=== PATIENT | female | born 1965 | race African-American/Black ===

== ENCOUNTER 2024-06-06 16:07 | Outpatient (AMB) | payer OTHER, SELFPAY ==
--- NOTE | 2024-06-06 16:11 | A.OFFPC_ITS ---
Vital Signs 06/06/24 16:18 Height 5 ft 2.5 in Weight 215 lb 4 oz BMI 38.7 BP 128/80 Blood Pressure Location Lt brachial Position Sitting Pulse 68 Pulse Source Pulse Oximeter Pulse Oximetry (%) 98 Oxygen Delivery Method Room Air Intake Visit Reasons: establish care Intake Note: Patient is requesting refills on all medications. Manager Fine Dining Required: No Accompanied by: Self / Same As Patient Allergies oxycodone Allergy (Severe, Verified 06/06/24 16:52) itchy Medication List - Last Reconciled 06/06/24 by Hood Sutton MD amlodipine 5 mg PO DAILY hydrochlorothiazide 25 mg PO DAILY metformin ER 500 mg PO BID Tobacco use date assessed: 06/06/24 Dental Screening Dental Screen Date: 06/06/24 Did you have a dental visit in the last 12 months?: Yes Did you have a dental problem in the last 6 months where you did not have access to dental care?: No Was dental information given to patient?: Patient has dentist HPI establish care HPI Details Patient comes in today to establish care - is a new patient to the practice States that she moved here from [place] back in November 2023 and that her previous PCP was practicing out of [facility] Patient states that she has a few medical conditions and has not had her Rx for about 2 weeks now and needs to have her medications refilled States that she has been a diabetic for about 3 years now and that her diabetes has been under good control on her current Rx She denies any headaches or dizziness Denies any chest pains, no SOB No nausea/vomiting, no abdominal pain No change in bowel habits noted She denies any acute urinary symptoms Patient adds that she has had low back pain for years and used to get something for her back pain while she was in [place] and would like to get a prescription again for some Tramadol She does not recall any recent imaging studies done to look into her chronic low back pain States that she had her annual mammogram done at [facility] in [place] about 3 months ago and was advised that her mammogram came back normal Patient states that she has never had a screening colonoscopy done and it has been a few years now since she last had her yearly gynecology exam and Pap smear She is not due for osteoporosis screening yet as she just developed menopause about 2 years ago FOR[facility]LY [facility], [facility] Medical History (Updated 06/08/24 @ 11:21 by Hood Sutton MD) Obesity (BMI 30-39.9) Low back pain Essential hypertension Diabetes mellitus History of root canal treatment Surgical History (Updated 06/06/24 @ 17:03 by Hood Sutton MD) History of ankle surgery Family History (Updated 06/06/24 @ 16:22 by JOE Garay) Other Diabetes Prostate cancer Social History Housing: House Patient Tobacco Use Status: Never used Tobacco e-Cigarette/Vaping Use: Never Used Second Hand Smoke Exposure: No service: No Current occupational status: employed Current occupational exposures/hazards: No Cognitive needs: No Hearing needs: No Vision needs: Yes Questionnaire PHQ-9 Over the last 2 weeks, how often have you been bothered by any of the following problems? 1. Little interest or pleasure in doing things: not at all 2. Feeling down, depressed, or hopeless: not at all 3. Trouble falling or staying asleep, or sleeping too much: not at all 4. Feeling tired or having little energy: not at all 5. Poor appetite or overeating: not at all 6. Feeling bad about yourself - or that you are a failure or have let yourself or your family down: not at all 7. Trouble concentrating on things, such as reading the newspaper or watching television: not at all 8. Moving or speaking so slowly that other people could have noticed. Or the opposite - being so fidgety or restless that you have been moving around a lot more than usual: not at all 9. Thoughts that you would be better off or of hurting yourself in some way: not at all Total score: 0 Depression Screening Interpretation: Negative Depression Screening Done: Yes 30651 - PHQ-9 Billing: Yes Source: Developed by Drs. Sarkis Phelps, Olivia Ramírez, Elbert Wright and colleagues, with an educational jose enrique from [employer]. Thrive Questionnaire Date Thrive assessed: 06/05/24 I am a: Patient What is your living situation today?: I have a steady place to live Within the past 12 months, did the food you bought not last and you didn't have the money to get more?: Never true Within the past 12 months, did you worry whether your food would run out before you got money to buy more?: Sometimes True Do you have trouble paying for medicines?: No Do you have trouble getting transportation to medical appointments?: No Do you have trouble paying your heating and electricity bill?: Yes Do you have trouble taking care of your child, family member or friend?: No Do you have trouble with day-to-day activities such as bathing, preparing meals, shopping, managing finances, etc.?: No Are you currently unemployed and looking for a job?: No Are you interested in more education?: Yes Please select the resources that you would like help with: Utilities Currently or been in a relationship where the following occur: No concerns re ported THRIVE Score: 2 AUDIT C Alcohol Use Questionnaire (AUDIT-C) 1. How often do you have a drink containing alcohol?: Never 2. How many drinks containing alcohol do you have on a typical day when you are drinking?: 1 or 2 3. How often do you have six or more drinks on one occasion?: Less than monthly Total Score: 1 Score Reviewed/Action Taken: Yes MAYE-7 AMB Questionnaire MAYE-7 Date MAYE - 7 assessed: 06/06/24 Feeling nervous, anxious, or on edge: 0 = Not at all Not being able to stop or control worryin = Not at all Worrying too much about different things: 0 = Not at all Trouble relaxin = Not at all Being so restless that it is hard to sit still: 0 = Not at all Feeling afraid as if something awful might happen: 0 = Not at all Source: Developed by Drs. Sarkis Phelps, Olivia Ramírez, Elbert Wright and colleagues, with an educational jose nerique from [employer]. Review of Systems Const Denies chills, Denies fatigue, Denies fever(s), Denies headache(s) and Denies malaise Eyes Denies blurry vision, Denies change in vision, Denies irritation and Denies itchy eyes ENT Denies dysphagia, Denies dizziness, Denies otalgia, Denies headache(s), Denies nasal congestion, Denies neck pain, Denies odynophagia, Denies sinus pain and Denies sore throat Card Denies chest pain, Denies rapid heart rate, Denies irregular heart rhythm, Denies palpitations and Denies dyspnea Resp Denies chest congestion, Denies cough, Denies dyspnea and Denies wheezing GI Denies abdominal pain, Denies bloating, Denies constipation, Denies dysphagia, Denies heartburn, Denies diarrhea, Denies nausea, Denies odynophagia and Denies vomiting Denies hematuria, Denies urinary frequency, Denies dysuria, Denies urinary incontinence and Denies urinary urgency Musc Reports back pain (over her lower back - chronic), Denies arthralgias, Denies joint swelling, Denies muscle weakness and Denies neck pain Skin/Breast Denies breast pain, Denies breast mass, Denies change in pigmentation, Denies lesions, Denies rash and Denies unusual bruising Neuro Denies dizziness, Denies headache(s) and Denies paresthesias Psych Denies anxiety and Denies depression Endo Denies fatigue and Denies palpitations Nuno/Lymph Denies easy bruising Aller/Immun Denies itchy eyes and Denies wheezing Physical exam (Primary Care) Vital Signs: Last Vital Signs Pulse 68 06/06/24 16:18 BP 128/80 06/06/24 16:18 Pulse Ox 98 06/06/24 16:18 Oxygen Delivery Method Room Air 06/06/24 16:18 BMI result Body Mass Index 38.7 Tobacco/Smoking Status: Tobacco use Status Tobacco use date assessed 06/06/24 06/06/24 16:14 Patient Tobacco Use Status Never used Tobacco 06/06/24 16:26 e-Cigarette/Vaping Use Never Used 06/06/24 16:14 PHQ-9: PHQ-9 Score PHQ-9: Total score 0 06/07/24 06:59 Depression Screening Interpretation: Negative Thrive Assessment: Date of Thrive Assessment Date Thrive assessed 06/05/24 06/06/24 16:14 Currently or been in a relationship where the following occur: No concerns reported Const General: no acute distress, alert and awake Orientation/consciousness: patient oriented x3 HENMT Head: Yes normocephalic and Yes atraumatic Ears: external ears normal, TM's normal bilaterally and EAC's normal General nose exam: No nasal discharge present Face and sinus: Yes normal facial exam and Yes sinuses nontender Teeth and gingiva: dentition normal Throat: Yes posterior oropharynx normal and Yes tonsils normal (no TP conge stion) Eyes Eyelids: Yes eyelids normal Conjunctivae: conjunctivae normal Pupils: Equal, round and reactive pupils present EOM: EOMs intact bilaterally Neck Neck: Yes no lymphadenopathy and Yes supple Thyroid: Thyroid normal Resp Auscultation: clear to auscultation bilaterally, no rales and no wheezes Cardio Rate: regular rate Rhythm: regular rhythm Heart sounds: no murmurs GI Palpation (GI): Soft to palpation, nontender and No hepatosplenomegaly present Auscultation: normal bowel sounds General: Yes no CVA tenderness Back/Spine/Pelvis Back: no CVA tenderness Thoracic/Lumbar Spine: thoracic and lumbar spine normal to inspection and lumbar spinal tenderness Skin Lesions: no lesions Rashes: no rashes Neuro General: patient oriented x3, moves all extremities, no focal motor deficits and CN's II-XI intact bilaterally Cranial nerves: Yes Equal, round and reactive pupils present Cognition (Neuro): normal cognition Gait exam (Neuro): Normal gait present Extrem General: Yes no clubbing, cyanosis or edema Coding Level of Care Code New Pt Prev Care 40-64y(70621) Diagnoses Annual physical exam Z00.00 Essential hypertension I10 Type 2 diabetes mellitus without complication, without long-term current use of insulin E11.9 Diabetes mellitus type: type 2 Diabetes mellitus shelter insulin use: without termite exterminator helper use Diabetes mellitus complication status: without complication Midline low back pain without sciatica, unspecified chronicity M54.50 Chronicity: unspecified Back pain laterality: midline Sciatica presence: without sciatica Obesity (BMI 30-39.9) E66.9 Colon cancer screening Z12.11 Cervical cancer screening Z12.4 Additional Codes PHQ-9 - 01666 - PHQ-9 Billing: Yes ([id number]) Assessment & Plan Assessment & Plan (1) Annual physical exam: Code(s): Z00.00 - Encounter for general adult medical examination without abnormal findings Category: Medical Plan: Patient states that she had labs done a few months ago while she was still in [place] - will try to see if we can request for a copy of her most recent labs done at [facility] sent over for review Otherwise, we will just have patient get some labs done in 3 months for follow- up She also had her annual mammography done at [facility] about 3 months ago and was advised that her memory and came out normal She is overdue for her yearly gynecology exam and Pap smear and states that she has had never had a screening colonoscopy done in the past She is not yet due for osteoporosis screening - just started menopause about 2 years ago (2) Essential hypertension: Code(s): I10 - Essential (primary) hypertension Category: Medical Plan: Reinforced low-sodium diet - goal is systolic BP of 120 mm or less Continue Amlodipine 5 mg QD and HCTZ 25 mg QD Patient is reminded to continue monitoring her blood pressure regularly (3) Diabetes mellitus: Code(s): E11.9 - Type 2 diabetes mellitus without complications Category: Medical Qualifiers: Diabetes mellitus type: type 2 Diabetes mellitus termite exterminator helper insulin use: without termite exterminator helper use Diabetes mellitus complication status: without complication Qualified Code(s): E11.9 - Type 2 diabetes mellitus without complications Plan: Reinforced diabetic diet Patient states that she has been a diabetic for about 3 years now and that her diabetes has been under good control States that her HgbA1c was good on her recent labs done at [facility] back in October 2023 but she can not recall the exact number on her HgbA1c Will have her continue on Metformin ER 500 mg BID for now - Rx refilled Will have her recheck her FBS and HgbA1c together with her other labs in 3 months for follow-up (4) Low back pain: Code(s): M54.50 - Low back pain, unspecified Category: Medical Qualifiers: Chronicity: unspecified Back pain laterality: midline Sciatica presence: without sciatica Qualified Code(s): M54.50 - Low back pain, unspecified Plan: Patient reports suffering from chronic low back pain for years but she admits that she has not had any imaging studies done on her lower back recently She was taking Tramadol 50 mg BID PRN last year when she was still in [place] but has not been able to get any prescription refilled since she moved here to [facility] a few months ago Will send her for lumbar spine x-rays for further evaluation Will start her back on Tramadol in the meantime and have her stay on the same 50 mg dose BID PRN Have discussed with patient about the dangers of chronic opioid therapy and that they are mostly ineffective and better way going forward if she has to be on something to help with her chronic pain would be to refer her to pain management (5) Obesity (BMI 30-39.9): Code(s): E66.9 - Obesity, unspecified Category: Medical Plan: Reinforced diet/exercise as tolerated/lose weight (6) Colon cancer screening: Code(s): Z12.11 - Encounter for screening for malignant neoplasm of colon Category: Medical Plan: Patient states that she has never had a colonoscopy done in the past Will refer her to GI for her screening colonoscopy (7) Cervical cancer screening: Code(s): Z12.4 - Encounter for screening for malignant neoplasm of cervix Category: Medical Plan: Will refer her to senior mobile application developer for her yearly gynecology exam and Pap smear Plan Follow up in 3 months Orders: Orders Microalbumin, Random (w Creat) 3 Months E11.9 - Type 2 diabetes mellitus without complications, Z00.00 - Encounter for general adult medical examination without abnormal findings TSH reflex Free T4 3 Months E78.00 - Pure hypercholesterolemia, unspecified, Z00.00 - Encounter for general adult medical examination without abnormal findings Vitamin D 25-OH Total 3 Months E55.9 - Vitamin D deficiency, unspecified, Z00.00 - Encounter for general adult medical examination without abnormal findings Complete Blood Count Auto Diff 3 Months D64.9 - Anemia, unspecified, Z00.00 - Encounter for general adult medical examination without abnormal findings Comprehensive Toyah. Panel Fast 3 Months E78.00 - Pure hypercholesterolemia, unspecified, Z00.00 - Encounter for general adult medical examination without abnormal findings Lipid Panel 3 Months E78.00 - Pure hypercholesterolemia, unspecified, Z00.00 - Encounter for general adult medical examination without abnormal findings Hemoglobin A1c 3 Months E11.9 - Type 2 diabetes mellitus without complications, Z00.00 - Encounter for general adult medical examination without abnormal findings UA CC w/rflx Micro + Cult 3 Months R30.0 - Dysuria, Z00.00 - Encounter for general adult medical examination without abnormal findings Vitamin B12 and Folate 3 Months E53.8 - Deficiency of other specified B group vitamins, Z00.00 - Encounter for general adult medical examination without abnormal findings XR lumbar spine 2-3V 3 Months M54.50 - Low back pain, unspecified Referrals Gastroenterology Referral Z12.11 - Encounter for screening for malignant neoplasm of colon PATIENT FINANCIAL SPECIALIST Referral Z12.4 - Encounter for screening for malignant neoplasm of cervix Medications: New amlodipine 5 mg PO DAILY 90 tabs 1RF 90 days tramadol 50 mg PO BID PRN 30 tabs 0RF low back pain hydrochlorothiazide 25 mg PO DAILY 90 tabs 1RF 90 days metformin ER 500 mg PO BID 180 tabs 1RF 90 days
[2024-06-06 16:18] VITALS: BP 128/80; PULSE 68; O2SAT 98; BMI 38.7
== END 2024-06-06 17:08 | disposition home or self-care (01) ==
LOC: HO.HMCH 16:08
PROVIDERS: Visit Provider Internal Medicine
DX: Z00.00 Encounter for general adult medical examination without abnormal findings (principal); E11.9 Type 2 diabetes mellitus without complications; E66.9 Obesity, unspecified; Z68.38 Body mass index [BMI] 38.0-38.9, adult; I10 Essential (primary) hypertension; M54.50 Low back pain, unspecified; Z12.11 Encounter for screening for malignant neoplasm of colon

== ENCOUNTER → 2024-06-06 16:07 | Outpatient (BNVA) | payer OTHER, SELFPAY | PROVIDERS: Visit Provider Internal Medicine | DX: Z00.00 Encounter for general adult medical examination without abnormal findings (principal); I10 Essential (primary) hypertension; E11.9 Type 2 diabetes mellitus without complications; M54.50 Low back pain, unspecified; E66.9 Obesity, unspecified; Z68.38 Body mass index [BMI] 38.0-38.9, adult; Z79.84 Long term (current) use of oral hypoglycemic drugs; Z79.899 Other long term (current) drug therapy | CPT/HCPCS: 96127; 99386 ==

== ENCOUNTER 2024-08-09 08:35 | Outpatient (REF) | payer OTHER, SELFPAY ==
--- NOTE | ~2024-08-09 | XR_ITS ---
CLINICAL HISTORY: pain 3 views lumbar spine Comparison: None Findings: The usual lumbar lordosis is maintained without spondylolisthesis. Vertebral body heights are maintained. Multilevel lumbar discogenic disease which is most conspicuous from L1-L3. Mild multilevel facet osteoarthritis. Mild bilateral hip osteoarthritis. IMPRESSION: No acute findings. Multilevel degenerative changes. This document has been electronically signed by: Isauro Yeager DO on 08/09/2024 10:11:55
[2024-08-09 11:04] LABS: MANUAL DIFF FLAG NO
[2024-08-09 11:11] LABS: Color Urine Dark Yellow; Glucose Urine UA Negative (Negative); Leukocyte Esterase Urine Negative (Negative); Nitrite Urine Negative (Negative); PH 5.5 (5.0-9.0); Specific Gravity - Urine 1.025 (1.005-1.025); Urine Blood Negative (Negative); Urine Ketones Trace mg/dL (Negative); Urine Protein Trace mg/dL (Neg-Trace)
[2024-08-09 11:15] LABS: Appearance Urine Cloudy
[2024-08-09 11:17] LABS: Basophils Absolute Auto 0.1 X10*3/uL (0.0-0.2); Eosinophils Absolute Auto 0.2 X10*3/uL (0.0-0.4); Eosinophils Percent Auto 2.6 % (0-4); Hematocrit 41.1 % (37.0-47.0); Hemoglobin 13.7 g/dl (12.0-16.0); Imm Gran Abs Auto 0.01 X10*3/uL (0.00-0.03); Imm Gran Pct Auto 0.2 % (0.0-0.4); Lymphocytes Absolute Auto 2.7 X10*3/uL (1.2-4.9); Lymphocytes Percent Auto 44.6 % (20-40); Mean Corpuscular HGB Conc 33.3 g/dl (31.0-35.0); Mean Corpuscular Hemoglobin 28.8 pg (27.0-33.0); Mean Corpuscular Volume 86.3 fL (80.0-98.0); Mean Platelet Volume 11.5 fL (9.4-12.3); Monocytes Absolute Auto 0.7 X10*3/uL (0.1-1.2); Monocytes Percent Auto 11.7 % (2-11); Neutrophils Absolute Auto 2.4 x10*3/uL (2.0-8.3); Neutrophils Percent Auto 39.9 % (45-73); Platelet Count 318 X10*3/uL (160-400); Red Blood Count 4.76 X10*6/uL (4.20-5.50); Red Cell Distribution Width 13.4 % (11.0-16.0); White Blood Count 6.1 X10*3/uL (4.8-10.8)
[2024-08-09 11:28] LABS: Estimated Average Glucose 140 mg/dL; Hemoglobin A1c % 6.5 % (<6.0); Total Hemoglobin (HGBA1C) 3710.2584 umol/L
[2024-08-09 11:30] LABS: Alanine Aminotransferase 30 U/L (0-31); Albumin Level 4.4 g/dL (3.5-5.0); Alkaline Phosphatase 103 U/L (39-117); Anion Gap 14 (12-20); Aspartate Amino Transferase 24 U/L (5-31); Bilirubin Total 0.7 mg/dL (0.0-1.0); Blood Urea Nitrogen 15 mg/dL (9-16); Calcium 9.6 mg/dL (8.4-10.2); Carbon Dioxide 27 mmol/L (22-29); Chloride 102 mmol/L (96-108); Cholesterol 184 mg/dL (<200); Estimated Glomerular Filt Rate > 60; Glucose Fasting 135 mg/dL (60-99); HDL Cholesterol 52 mg/dL (>40); LDL Cholesterol Calculated 110 mg/dL (<100); Potassium 3.5 mmol/L (3.3-5.1); Sodium 139 mmol/L (135-145); Total Protein 7.4 g/dL (6.5-8.0); Triglycerides 113 mg/dL (<150)
[2024-08-09 11:53] LABS: TSH reflex Free T4 1.84 uIU/mL (0.32-4.0); Vitamin D 25-OH Total 23.6 ng/mL (>30)
[2024-08-09 11:56] LABS: Vitamin B12 536 pg/mL (200-900)
[2024-08-09 12:05] LABS: Microalbum/Creatinine Ratio Ur 4.4 ug/mg cr (<30)
== END 2024-08-09 08:36 | disposition home or self-care (01) ==
LOC: HO.HMGCX 08:35
PROVIDERS: PCP Internal Medicine; Visit Provider Internal Medicine
DX: E11.9 Type 2 diabetes mellitus without complications (principal); M54.50 Low back pain, unspecified; D64.9 Anemia, unspecified; Z00.00 Encounter for general adult medical examination without abnormal findings; E78.00 Pure hypercholesterolemia, unspecified; R30.0 Dysuria; E53.8 Deficiency of other specified B group vitamins; E55.9 Vitamin D deficiency, unspecified
CPT/HCPCS: 36415; 72100; 80053; 80061; 81003; 82043; 82306; 82570; 82607; 82746; 83036; 84443; 85025

== ENCOUNTER → 2024-08-09 09:07 | Outpatient (BNV) | payer OTHER, SELFPAY | PROVIDERS: PCP Internal Medicine; Visit Provider Radiology Diagnostic Radiology | DX: M47.816 Spondylosis without myelopathy or radiculopathy, lumbar region (principal) | CPT/HCPCS: 72100 ==

== ENCOUNTER 2024-09-25 16:01 | Outpatient (AMB) | payer OTHER, SELFPAY ==
[2024-09-25 16:06] VITALS: BP 118/80; PULSE 77; O2SAT 98; BMI 39.1
--- NOTE | 2024-09-25 16:06 | MHC.PC.OV ---
Vital Signs 09/25/24 16:06 Height 5 ft 2.5 in Weight 217 lb 2 oz BMI 39.1 BP 118/80 Blood Pressure Location Lt brachial Position Sitting Pulse 77 Pulse Source Pulse Oximeter Pulse Oximetry (%) 98 Oxygen Delivery Method Room Air Intake Visit Reasons: FOLLOW UP 3 MONTHS Intake Note: Patient is requesting refills on all medications. Hide Trimmer Required: No Accompanied by: Self / Same As Patient Allergies oxycodone Allergy (Severe, Verified 09/25/24 16:28) itchy Medication List - Last Reconciled 09/25/24 by Hood Sutton MD amlodipine 5 mg PO DAILY 90 days hydrochlorothiazide 25 mg PO DAILY 90 days metformin ER 500 mg PO BID 90 days tramadol 50 mg PO BID PRN Tobacco use date assessed: 09/25/24 Dental Screening Dental Screen Date: 09/25/24 Did you have a dental visit in the last 12 months?: Yes Did you have a dental problem in the last 6 months where you did not have access to dental care?: No Was dental information given to patient?: Patient has dentist HPI FOLLOW UP 3 MONTHS HPI Details Patient comes in today for her follow-up visit States that she continues to experience frequent low back pain and is not able to sit or stand for prolonged periods of time due to her low back pain States that her previous doctor in [place] declared her disabled primarily due to this condition in she now needs some papers filled out again for this reason She would like to know how her back x-rays done a couple of months ago came out States that she feels okay otherwise She denies any headaches or dizziness Denies any chest pains, no shortness of breath No nausea/vomiting, no abdominal pain No change in bowel habits noted She had her follow-up labs done a couple of months ago - to discuss her results [facility] Medical History (Updated 09/26/24 @ 05:36 by Hood Sutton MD) Vitamin D deficiency Lumbar degenerative disc disease Obesity (BMI 30-39.9) Low back pain Essential hypertension Diabetes mellitus History of root canal treatment Surgical History History of ankle surgery Family History Other Diabetes Prostate cancer Social History (Reviewed 09/25/24 @ 16:07 by VALDEZ Garay Housing: House Patient Tobacco Use Status: Never used Tobacco e-Cigarette/Vaping Use: Never Used Second Hand Smoke Exposure: No service: No Current occupational status: employed Current occupational exposures/hazards: No Cognitive needs: No Hearing needs: No Vision needs: Yes Questionnaire PHQ-9 Over the last 2 weeks, how often have you been bothered by any of the following problems? 1. Little interest or pleasure in doing things: not at all 2. Feeling down, depressed, or hopeless: not at all 3. Trouble falling or staying asleep, or sleeping too much: not at all 4. Feeling tired or having little energy: not at all 5. Poor appetite or overeating: not at all 6. Feeling bad about yourself - or that you are a failure or have let yourself or your family down: not at all 7. Trouble concentrating on things, such as reading the newspaper or watching television: not at all 8. Moving or speaking so slowly that other people could have noticed. Or the opposite - being so fidgety or restless that you have been moving around a lot more than usual: not at all 9. Thoughts that you would be better off or of hurting yourself in some way: not at all Total score: 0 Depression Screening Interpretation: Negative Depression Screening Done: Yes 89444 - PHQ-9 Billing: Yes Source: Developed by Drs. Sarkis Phelps, Olivia Ramírez, Elbert Wright and colleagues, with an educational jose enrique from [employer]. Thrive Questionnaire Date Thrive assessed: 09/25/24 I am a: Patient What is your living situation today?: I have a steady place to live Within the past 12 months, did the food you bought not last and you didn't have the money to get more?: Never true Within the past 12 months, did you worry whether your food would run out before you got money to buy more?: I choose not to answer this question Do you have trouble paying for medicines?: I choose not to answer this question Do you have trouble getting transportation to medical appointments?: No Do you have trouble paying your heating and electricity bill?: Yes Do you have trouble taking care of your child, family member or friend?: No Do you have trouble with day-to-day activities such as bathing, preparing meals, shopping, managing finances, etc.?: No Are you currently unemployed and looking for a job?: I choose not to answer this question Are you interested in more education?: Yes Please select the resources that you would like help with: Utilities Currently or been in a relationship where the following occur: I choose not to answer THRIVE Score: 1 AUDIT C Alcohol Use Questionnaire (AUDIT-C) 1. How often do you have a drink containing alcohol?: Never 2. How many drinks containing alcohol do you have on a typical day when you are drinking?: 1 or 2 3. How often do you have six or more drinks on one occasion?: Less than monthly Total Score: 1 Score Reviewed/Action Taken: Yes MAYE-7 AMB Questionnaire MAYE-7 Date MAYE - 7 assessed: 09/25/24 Feeling nervous, anxious, or on edge: 0 = Not at all Not being able to stop or control worryin = Not at all Worrying too much about different things: 0 = Not at all Trouble relaxin = Not at all Being so restless that it is hard to sit still: 0 = Not at all Becoming easily annoyed or irritable: 0 = Not at all Feeling afraid as if something awful might happen: 0 = Not at all Total MAYE-7 score (0-4 normal; 5-9 mild; 10-14 moderate; 15-21 severe): 0 Source: Developed by Drs. Sarkis Phelps, Olivia Ramírez, Elbert Wright and colleagues, with an educational jose enrique from [employer]. Review of Systems Const Denies chills, Denies fatigue, Denies fever(s) and Denies headache(s) ENT Denies dysphagia, Denies dizziness, Denies otalgia, Denies headache(s), Denies neck pain, Denies odynophagia and Denies sore throat Card Denies chest pain, Denies rapid heart rate, Denies irregular heart rhythm, Denies palpitations and Denies dyspnea Resp Denies chest congestion, Denies cough and Denies dyspnea GI Denies abdominal pain, Denies constipation, Denies dysphagia, Denies heartburn, Denies diarrhea, Denies nausea, Denies odynophagia and Denies vomiting Denies urinary frequency, Denies dysuria and Denies urinary urgency Musc Reports back pain (over her lower back - chronic), Denies arthralgias and Denies neck pain Skin/Breast Denies rash Neuro Denies dizziness, Denies headache(s) and Denies paresthesias Psych Denies anxiety and Denies depression Endo Denies fatigue and Denies palpitations Nuno/Lymph Denies easy bruising Physical exam (Primary Care) Vital Signs: Last Vital Signs Pulse 77 09/25/24 16:06 BP 118/80 09/25/24 16:06 Pulse Ox 98 09/25/24 16:06 Oxygen Delivery Method Room Air 09/25/24 16:06 BMI result Body Mass Index 39.1 Tobacco/Smoking Status: Tobacco use Status Tobacco use date assessed 09/25/24 09/25/24 16:10 Patient Tobacco Use Status Never used Tobacco 09/25/24 16:10 e-Cigarette/Vaping Use Never Used 09/25/24 16:10 PHQ-9: PHQ-9 Score PHQ-9: Total score 0 09/25/24 16:29 Depression Screening Interpretation: Negative Thrive Assessment: Date of Thrive Assessment Date Thrive assessed 09/25/24 09/25/24 16:10 Currently or been in a relationship where the following occur: I choose not to answer Const General: no acute distress and alert HENMT Ears: TM's normal bilaterally and EAC's normal Throat: Yes posterior oropharynx normal and Yes tonsils normal (no TP congestion) Neck Neck: Yes no lymphadenopathy and Yes supple Thyroid: Thyroid normal Resp Auscultation: clear to auscultation bilaterally, no rales and no wheezes Cardio Rate: regular rate Rhythm: regular rhythm Heart sounds: no murmurs GI Palpation (GI): Soft to palpation and nontender Auscultation: normal bowel sounds General: Yes no CVA tenderness Back/Spine/Pelvis Back: no CVA tenderness Thoracic/Lumbar Spine: lumbar spinal tenderness Skin Rashes: no rashes Extrem General: Yes no clubbing, cyanosis or edema Results Reviewed Results Reviewed: Laboratory Tests 08/09/24 08/09/24 08:45 08:50 WBC 6.1 Hgb 13.7 Hct 41.1 Plt Count 318 Sodium 139 Potassium 3.5 Creatinine 0.79 Estimated GFR > 60 Fasting Glucose 135 H Hemoglobin A1c % 6.5 H Calcium 9.6 AST 24 ALT 30 Triglycerides 113 Cholesterol 184 LDL Cholesterol, Calc 110 H HDL Cholesterol 52 Vitamin B12 536 25-OH Vitamin D Total 23.6 L TSH 1.84 Ur Specific [place]ce[place] 1.025 Urine Protein Trace Urine Glucose (UA) Negative Urine Blood Negative Urine Nitrite Negative Ur Leukocyte Esterase Negative Microalb/Creat Ratio 4.4 Coding Level of Care Code Est Pt Level 4 (48115) Diagnoses Essential hypertension I10 Type 2 diabetes mellitus without complication, without long-term current use of insulin E11.9 Diabetes mellitus type: type 2 Diabetes mellitus snf insulin use: without snf use Diabetes mellitus complication status: without complication Degeneration of intervertebral disc of lumbar region with discogenic back pain M51.360 Disc-related pain type: discogenic back pain only Vitamin D deficiency E55.9 Obesity (BMI 30-39.9) E66.9 Additional Codes PHQ-9 - 89967 - PHQ-9 Billing: Yes ([id number]) Assessment & Plan Assessment & Plan (1) Essential hypertension: Code(s): I10 - Essential (primary) hypertension Category: Medical Plan: Reinforced low-sodium diet - goal is systolic BP of 120 mm or less Continue Amlodipine 5 mg QD and HCTZ 25 mg QD Patient is reminded to continue monitoring her blood pressure regularly (2) Diabetes mellitus: Code(s): E11.9 - Type 2 diabetes mellitus without complications Category: Medical Qualifiers: Diabetes mellitus type: type 2 Diabetes mellitus intermodal dispatcher insulin use: without snf use Diabetes mellitus complication status: without complication Qualified Code(s): E11.9 - Type 2 diabetes mellitus without complications Plan: Patient's HgbA1c is at 6.5% on her labs done a couple of months ago - goal is at least <7.0% Reinforced diabetic diet Continue Metformin ER 500 mg BID Will recheck her FBS and HgbA1c in 4 months for follow-up (3) Lumbar degenerative disc disease: Code(s): M51.369 - Other intervertebral disc degeneration, lumbar region without mention of lumbar back pain or lower extremity pain Category: Medical Qualifiers: Disc-related pain type: discogenic back pain only Qualified Code(s): M51.360 - Other intervertebral disc degeneration, lumbar region with discogenic back pain only Plan: Lumbar spine x-rays done back in July 2024 revealed (+) multilevel degenerative changes with no acute findings Reinforced activity and weightlifting restrictions Will refer her to physical therapy for further evaluation and management Continue Tramadol 50 mg BID PRN; will start her additionally on Tizanidine 4 mg Q HS PRN Will also help her fill out her papers today regarding her low back pain (4) Vitamin D deficiency: Code(s): E55.9 - Vitamin D deficiency, unspecified Category: Medical Plan: Patient is advised that her vitamin-D level is low on recent labs She calls being advised to stop taking vitamin-D supplements by her previous PCP a while back as her vitamin-D level was supposedly very high Will start her on a lower dose of vitamin-D at this time - Rx for vitamin D3 1000 units QD sent to her pharmacy (5) Obesity (BMI 30-39.9): Code(s): E66.9 - Obesity, unspecified Category: Medical Plan: Reinforced diet/exercise as tolerated/lose weight Plan Follow up in 4 months Orders: Orders Hemoglobin A1c 4 Months E11.9 - Type 2 diabetes mellitus without complications UA CC w/rflx Micro + Cult 4 Months R30.0 - Dysuria Lipid Panel 4 Months E78.00 - Pure hypercholesterolemia, unspecified PT Evaluation and Treatment 09/25/24 M51.369 - Other intervertebral disc degeneration, lumbar region without mention of lumbar back pain or lower extremity pain, M54.50 - Low back pain, unspecified Complete Blood Count Auto Diff 4 Months D64.9 - Anemia, unspecified Comprehensive [place]. Panel Fast 4 Months E78.00 - Pure hypercholesterolemia, unspecified Microalbumin, Random (w Creat) 4 Months E11.9 - Type 2 diabetes mellitus without complications TSH reflex Free T4 4 Months E78.00 - Pure hypercholesterolemia, unspecified Vitamin D 25-OH Total 4 Months E55.9 - Vitamin D deficiency, unspecified Medications: New cholecalciferol (vitamin D3) 25 mcg PO DAILY 90 caps 3RF 90 days E55.9 - Vitamin D deficiency, unspecified tizanidine 4 mg PO BEDTIME PRN 30 tabs 0RF muscle spasms/low back pain
--- OUTSIDE RECORDS SUMMARY | 2024-09-25 16:07 | XMS_ITS | Clinical Summary ---
Author Organization [facility] Address [facility] [address] [address] Phone Care Team Providers Care Coater Helper Name Role Phone Shirley Pinto CHEMICAL MIXER Primary Care Provider [phone] Allergies Active Allergy Reactions Criticality Noted Date Comments Oxycodone Itching 11/16/2018 Medications IBUPROFEN, BULK, MISC Active lidocaine (LIDODERM) 5 % Place 1 patch onto the skin daily. Remove & Discard patch within 12 hours or as directed by MD 10 patch 9 Active Additional Information Patient not taking.Reported on 08/30/2023 Active Problems Problem Noted Date Diagnosed Date Type 2 diabetes mellitus wit hout complication, without long-term current use of insulin 08/30/2023 Senile incipient cataract of both eyes Dry eyes 08/30/2023 Family History Medical History Relation Comments Diabetes Father Relation Status Comments Father Social History Tobacco Use Types Packs/Day Years Used Date Smoking Tobacco: Never Alcohol Use Standard Drinks/Week Comments Yes 0 (1 standard drink = 0.6 oz pur e alcohol) socially Education Answer Date Recorded Are you interested in more education? Not on raul e 06/08/2022 Are you concerned about learning? Not on file 06/08/2022 No 06/08/2022 No 06/08/2022 Digital Access Answer Date Recorded No 07/10/2022 No 07/10/2022 Reliable internet access at home? Not on file 07/10/2022 Device with a working camera? Not on file Comments Unknown Sex and Gender Information Value Date Recorded Sex Assigned at Not on file Legal Sex Female 7:37 PM EST Gender Identity Not on file Sexual Orientation Not on file Last Filed Vital Signs Vital Sign Reading Time Taken Comments Blood Pressure 162/100 11/16/2018 11:37 PM EDT Pulse 64 11/16/2018 11:37 PM EDT Temperature 36.7 C (98.1 F) 11/16/2018 11:37 PM EDT Respiratory Rate 18 11/16/2018 11:37 PM EDT Oxygen Saturation 100% 11/16/2018 11:37 PM EDT Inhaled Oxygen Concentration - - Weight 99.8 kg (220 lb) 11/16/2018 6:39 PM EDT Height - - Body Mass Index - - Plan of Treatment Health Maintenance Due Date Last Done Comments Adult Td,Tdap Booster 1967 BLOOD PRESSURE 1967 HEMOGLOBIN A1C 1967 DEPRESSION SCREENING 1979 HEPATITIS C SCREENING 12/20/1985 HIV ONE-TIME SCREENING (18-65 YEARS) 12/20/1985 LIPID PANEL 12/20/1985 PNEUMOCOCCAL VACCINES (50+ years) (1 of 2 - PCV) 12/20/1986 PAP SMEAR 12/20/1988 MAMMOGRAM 2007 COLOGUARD 12/20/2012 COLONOSCOPY 12/20/2012 COLORECTAL CANCER SCREENING 12/20/2012 FIT TEST 12/20/2012 FOBT 12/20/2012 SIGMOIDOSCOPY 12/20/2012 VIRTUAL COLONOSCOPY 12/20/2012 ZOSTER VACCINES (1 of 2) 12/20/2017 URINE MICROALBUMIN/CREATININE RATIO 08/30/2023 COVID-19 VACCINE ( - 2023- season) 2023 DIABETIC EYE EXAM 08/29/2024 08/30/2023, , 08/30/2023, Additional history exists SMOKING STATUS SCREENING (Once After 26 Yrs) Completed 08/30/2023 HEPATITIS A VACCINES Aged Out No long er eligible based on patient's age to complete this topic HIB VACCINES Aged Out No longer eligi ble based on patient's age to complete this topic MENINGOCOCCAL VACCINES (ACWY) Aged Out No longer eligible based on patient's age to complete this topic MENINGOCOCCAL VACCINES (B) Aged Out N o longer eligible based on patient's age to complete this topic Medical Devices Not on file Insurance [facility] [employer] COMPENSATION WORKERS COMPENSATION Care Teams Coater Helper Relationship Specialty Start Date End Date Shirley Pinto, RAH [address] [address] PCP - General Family Medicine 06/12/16 Additional Source Comments The information contained in this document represents components of the legal health record. It is not the complete legal health record.[facility]
== END 2024-09-25 16:40 | disposition home or self-care (01) ==
LOC: HO.HMCH 16:02
PROVIDERS: PCP Internal Medicine; Visit Provider Internal Medicine
DX: I10 Essential (primary) hypertension (principal); E11.9 Type 2 diabetes mellitus without complications; Z68.39 Body mass index [BMI] 39.0-39.9, adult; E66.9 Obesity, unspecified; M51.360 Other intervertebral disc degeneration, lumbar region with discogenic back pain only; E55.9 Vitamin D deficiency, unspecified

== ENCOUNTER → 2024-09-25 16:01 | Outpatient (BNVA) | payer OTHER, SELFPAY | PROVIDERS: PCP Internal Medicine; Visit Provider Internal Medicine | DX: I10 Essential (primary) hypertension (principal); E11.9 Type 2 diabetes mellitus without complications; M51.360 Other intervertebral disc degeneration, lumbar region with discogenic back pain only; E55.9 Vitamin D deficiency, unspecified; E66.9 Obesity, unspecified; Z68.39 Body mass index [BMI] 39.0-39.9, adult | CPT/HCPCS: 96127; 99212 ==